=== PATIENT | male | born 1960 | race Caucasian/White ===

== ENCOUNTER 2020-12-25 13:48 | Observation (INO) | payer OTHER ==
[2020-12-25 14:46] LABS: Absolute Lymphocytes (CBC) 2.3 K/uL (0.7-4.9); Basophils % 0.7 % (0-1.3); Lymphocytes % 23.8 % (15.3-44.8); MPV 8.7 fL (7.6-11.3); RBC Red Blood Cell Count 5.18 M/uL (4.33-5.43)
--- NOTE | 2020-12-25 14:50 | RAD REPORT ---
EXAM DESCRIPTION: RAD - Chest Single View - 12/25/2020 2:44 pm CLINICAL HISTORY: CHEST PAIN Chest pain. COMPARISON: No comparisons FINDINGS: Portable technique limits examination quality. The lungs are grossly clear. The heart is normal in size. No displaced fractures. IMPRESSION: No acute intrathoracic process suspected.
[2020-12-25 14:51] LABS: Protime INR 1.08
[2020-12-25 15:08] LABS: ALT/SGPT 81 U/L (12-78); AST/SGOT 81 U/L (15-37); Albumin 4.7 g/dL (3.4-5.0); Alkaline Phosphatase 73 U/L (45-117); BUN Blood Urea Nitrogen 10 mg/dL (7-18); Bicarbonate 22 mmol/L (21-32); Bilirubin Direct 0.2 mg/dL (0-0.2); Bilirubin Total 0.7 mg/dL (0.2-1.0); Glucose Level 98 mg/dL (74-106); Magnesium 2.3 mg/dL (1.8-2.4); NT PRO-BNP 13 pg/mL (<125); Potassium 4.1 mmol/L (3.5-5.1); Protein, Total 8.4 g/dL (6.4-8.2); Sodium Level 136 mmol/L (136-145); Troponin (Emerg Dept Use Only) < 0.02 ng/mL (0.0-0.045)
[2020-12-25] MEDS ORDERED: ASPIRIN 81 MG CHEWABLE TABLET ONE (15:25)
[2020-12-25] MEDS ORDERED: NA CHLORIDE 0.9% 1,000 ML ONE (15:26)
--- NOTE | 2020-12-25 15:32 | EDPHYS ---
Physician Documentation [facility] Name: Raffi Doran Age: 60 yrs Sex: Male : 1960 Arrival Date: 12/25/2020 Time: 13:49 Bed 17 Private MD: ED Physician Mani Vaughn HPI: 12/25 14:21 This 60 yrs old Male presents to ER via Ambulatory with complaints of Chest cp Pain, Arm Pain. 14:21 The patient or guardian reports chest pain that is located primarily in the anterior cp chest wall, left. 14:21 Onset: today. cp 14:21 The pain radiates to left upper arm. Associated signs and symptoms: Pertinent cp negatives: abdominal pain, cough, diaphoresis, dizziness, headache, lower extremity pain, lower extremity swelling, shortness of breath. The chest pain is described as aching. Duration: The patient or guardian reports a single episode, chest pain resolved but continues to have pain left upper arm. Patient reports episode of left side chest pain last night. Historical: - Allergies: 13:59 No Known Allergies; ll1 - PMHx: 13:59 Hypertension; ll1 - PSHx: 13:59 None; ll1 - Immunization history:: Flu vaccine is not up to date. - Social history:: Smoking status: Patient reports the use of cigarette tobacco products, denies chronic smoking, but will smoke occasionally. ROS: 14:25 Constitutional: Negative for body aches, chills, fever, poor PO intake. cp 14:25 Eyes: Negative for injury, pain, redness, and discharge. cp 14:25 ENT: Negative for ear pain, sore throat, difficulty swallowing, difficulty handling secretions. 14:25 Neck: Negative for pain with movement, pain at rest, stiffness, tenderness. 14:25 Cardiovascular: Positive for chest pain, of the anterior aspect of left upper chest, Negative for edema, palpitations. 14:25 Respiratory: Negative for cough, shortness of breath, wheezing. 14:25 Abdomen/GI: Negative for abdominal pain, nausea, vomiting, and diarrhea. 14:25 Back: Negative for radiated pain. 14:25 Neuro: Negative for altered mental status, headache, numbness, syncope, weakness. 14:25 All other systems are negative. Exam: 14:30 Constitutional: The patient appears in no acute distress, alert, awake, comfortable, cp non-diaphoretic, non-toxic, well developed, well nourished. 14:30 Head/Face: Normocephalic, atraumatic. cp 14:30 Eyes: Periorbital structures: appear normal, Conjunctiva: normal, no exudate, no injection, Sclera: no appreciated abnormality, Lids and lashes: appear normal, bilaterally. 14:30 ENT: External ear(s): are unremarkable, Nose: is normal, Posterior pharynx: Airway: no evidence of obstruction, patent. 14:30 Neck: ROM/movement: is normal, is supple, without pain, no range of motions limitations, no nuchal rigidity. 14:30 Chest/axilla: Inspection: normal, Palpation: is normal, no crepitus, no tenderness. 14:30 Cardiovascular: Rate: tachycardic, Rhythm: regular, Heart sounds: murmur, not appreciated, Edema: is not appreciated, JVD: is not appreciated. 14:30 Respiratory: the patient does not display signs of respiratory distress, Respirations: normal, no use of accessory muscles, no retractions, labored breathing, is not present, Breath sounds: are clear throughout, no decreased breath sounds, no stridor, no wheezing. 14:30 Abdomen/GI: Inspection: abdomen appears normal, Palpation: abdomen is soft and non-tender, in all quadrants. 14:30 Back: pain, is absent, ROM is normal. 14:30 Skin: no rash present. 14:30 Neuro: Orientation: to person, place \\T\\ time. Mentation: is normal, Motor: moves all fours, strength is normal. 14:46 ECG was reviewed by the Attending Physician. cp Vital Signs: 13:59 BP 139 / 89; Pulse 107; Resp 17; Temp 97.1; Pulse Ox 100% ; Weight 99.79 kg; Height 5 ll1 ft. 11 in. (180.34 cm); Pain 5/10; 15:49 BP 116 / 92; Pulse 81; Resp 18; Pulse Ox 98% on R/A; ph 17:00 BP 123 / 86; Pulse 78; Resp 18; Pulse Ox 99% on R/A; ph 17:54 BP 118 / 90; Pulse 81; Resp 18; Temp 97.5; Pulse Ox 99% on R/A; Pain 0/10; ph 13:59 Body Mass Index 30.68 (99.79 kg, 180.34 cm) ll1 MDM: 14:19 Patient medically screened. cp 14:30 Differential diagnosis: abnormal EKG, acute myocardial infarction, pleurisy, pneumonia, cp pneumothorax, pulmonary embolus, stable angina, thoracic aortic disection, unstable angina. 15:30 Data reviewed: vital signs, nurses notes, lab test result(s), EKG, radiologic studies, cp plain films. 15:30 Test interpretation: by ED physician or midlevel provider: ECG, plain radiologic cp studies. Counseling: I had a detailed discussion with the patient and/or guardian regarding: the historical points, exam findings, and any diagnostic results supporting the discharge/admit diagnosis, lab results, radiology results, the need for further work-up and treatment in the hospital. Physician consultation: Valdo Jacobs was called at 15:30, was contacted at 15:30, regarding admission, to the telemetry unit. patient's condition. 18:30 Refusal of service: The patient/guardian displays adequate decision making capability cp and despite a detailed discussion of alternatives, benefits, risks, and consequences refuses: Admission to the hospital for further work-up and treatment. 12/25 14:20 Order name: Basic Metabolic Panel; Complete Time: 15:08 cp 12/25 15:09 Interpretation: Normal except: GFR 75. cp 12/25 14:20 Order name: CBC with Diff; Complete Time: 15:08 cp 12/25 14:20 Order name: LFT's; Complete Time: 15:08 cp 12/25 15:09 Interpretation: Normal except: AST 81; ALT 81; TP 8.4; GLOB 3.7. cp 12/25 14:20 Order name: Magnesium; Complete Time: 15:08 cp 12/25 14:20 Order name: NT PRO-BNP; Complete Time: 15:08 cp 12/25 14:20 Order name: PT-INR; Complete Time: 15:08 cp 12/25 14:20 Order name: Troponin (emerg Dept Use Only); Complete Time: 15:08 cp 12/25 14:30 Order name: COVID-19 : Document "Date of Symptom Onset" if Symptomatic. 12/25 16:19 Order name: Basic Metabolic Panel [facility] 12/25 16:19 Order name: Basic Metabolic Panel [facility] 12/25 16:19 Order name: CBC with Automated Diff [facility] 12/25 16:19 Order name: CBC with Automated Diff [facility] 12/25 16:19 Order name: Lipid Profile [facility] 12/25 14:20 Order name: XRAY Chest (1 view); Complete Time: 15:08 cp 12/25 15:18 Interpretation: Report reviewed. cp 02 14:20 Order name: EKG; Complete Time: 14:22 cp 12/25 14:20 Order name: Cardiac monitoring; Complete Time: 14:39 cp 12/25 14:20 Order name: EKG - Nurse/Tech; Complete Time: 14:39 cp 12/25 14:20 Order name: IV Saline Lock; Complete Time: 14:40 cp 12/25 14:20 Order name: Labs collected and sent; Complete Time: 14:40 cp 12/25 14:20 Order name: O2 Per Protocol; Complete Time: 14:40 cp 12/25 16:19 Order name: Heart Healthy [facility] 12/25 16:19 Order name: Lipid Profile [facility] 12/25 16:19 Order name: Troponin I [facility] 12/25 16:19 Order name: Troponin I [facility] 12/25 16:19 Order name: Troponin I [facility] 12/25 16:23 Order name: SARS-COV-2 RT PCR [facility] 12/25 14:20 Order name: O2 Sat Monitoring; Complete Time: 14:40 cp EC:46 Rate is 91 beats/min. Rhythm is regular. OK interval is normal. QRS interval is normal. cp QT interval is normal. T waves are Inverted in lead aVR. Interpreted by me. Reviewed by me. Administered Medications: 15:47 Drug: Aspirin Chewable Tablet 324 mg Route: PO; ph 16:30 Follow up: Response: No adverse reaction ph 15:47 Drug: NS 0.9% 500 ml Route: IV; Rate: bolus; Site: right forearm; ph 17:00 Follow up: Response: No adverse reaction; IV Status: Completed infusion; IV Intake: ph 500ml 15:47 Drug: NS 0.9% 500 ml Route: IV; Rate: 500 ml/hr; Site: right forearm; ph 17:30 Follow up: Response: No adverse reaction; IV Status: Completed infusion; IV Intake: ph 500ml Disposition: 02/12/21 15:32 Hospitalization ordered by Valdo Jacobs for Observation. Preliminary diagnosis is Chest pain, unspecified. - Bed requested for Telemetry/MedSurg (observation). - Status is Observation. vg1 - Condition is Stable. - Problem is new. - Symptoms have improved. Addendum: 12/27/2020 14:33 Co-signature as Attending Physician, Mani Vaughn MD I agree with the assessment and k dr plan of care. Signatures: Dispatcher [employer] [facility] Mani Vaughn MD MD [facility] Kelsi Mcknight, RN RN Christo Tay PA PA Toyin Vargas, RN RN vg1 Charissa Banuelos RN RN ll1 Corrections: (The following items were deleted from the chart) 12/25 15:36 14:31 CORONAVIRUS ordered. [facility] 18:35 15:32 Hospitalization Ordered by Valdo Jacobs for Observation. Preliminary diagnosis vg1 is Chest pain, unspecified. Bed requested for Telemetry/MedSurg (observation). Status is Observation. Condition is Stable. Problem is new. Symptoms have improved. cp
--- NOTE | 2020-12-25 15:32 | ER ---
Nurse's Notes [facility] Name: Raffi Doran Age: 60 yrs Sex: Male : 1960 Arrival Date: 12/25/2020 Time: 13:49 Bed 17 Private MD: Diagnosis: Chest pain, unspecified Presentation: 12/25 13:59 Chief complaint: Patient states: L CP, L Shoulder, L arm pain since last night. No ll1 cough or SOB. No fever,. Coronavirus screen: Client denies travel out of the [place] in the last 14 days. At this time, the client does not indicate any symptoms associated with coronavirus-19. Ebola Screen: Patient denies travel to an Ebola-affected area in the 21 days before illness onset. Initial Sepsis Screen: Does the patient meet any 2 criteria? HR > 90 bpm. No. Patient's initial sepsis screen is negative. Does the patient have a suspected source of infection? No. Patient's initial sepsis screen is negative. Risk Assessment: Do you want to hurt yourself or someone else? Patient reports no desire to harm self or others. Onset of symptoms was December 24, 2019. 13:59 Method Of Arrival: Ambulatory ll1 13:59 Acuity: RYAN 3 ll1 Historical: - Allergies: 13:59 No Known Allergies; ll1 - PMHx: 13:59 Hypertension; ll1 - PSHx: 13:59 None; ll1 - Immunization history:: Flu vaccine is not up to date. - Social history:: Smoking status: Patient reports the use of cigarette tobacco products, denies chronic smoking, but will smoke occasionally. Screenin:06 Abuse screen: Denies threats or abuse. Denies injuries from another. Nutritional ph screening: No deficits noted. Tuberculosis screening: No symptoms or risk factors identified. Fall Risk None identified. Assessment: 14:47 General: Appears in no apparent distress. well groomed, Behavior is calm, cooperative, ph appropriate for age, Denies fever, feeling ill. Pain: Complains of pain in anterior aspect of left upper chest Pain radiates to left arm Pain currently is 1 out of 10 on a pain scale. Pain began 1 day ago. Neuro: Level of Consciousness is awake, alert, obeys commands, Oriented to person, place, time, situation. Cardiovascular: Reports chest pain, Denies lightheadedness, nausea, palpitations, shortness of breath, vomiting. Respiratory: Airway is patent Respiratory effort is labored, Respiratory pattern is tachypnea. 15:49 Reassessment: Patient appears in no apparent distress at this time. Patient and/or ph family updated on plan of care and expected duration. Pain level reassessed. Patient is alert, oriented x 3, equal unlabored respirations, skin warm/dry/pink. 17:35 Reassessment: Patient appears in no apparent distress at this time. Patient and/or ph family updated on plan of care and expected duration. Pain level reassessed. Patient is alert, oriented x 3, equal unlabored respirations, skin warm/dry/pink. Pt states that he does not wish to be admitted to the hospital, states, " I just wanted to make sure that I wasn't having a heart attack and I'm not. I have an appointment w/ my Dr next so I will follow up w/ him." ERP notified and at bedside to speak w/ pt, pt still states that he does not want to be admitted, will sign out AMA Patient denies pain at this time. 17:53 Reassessment: AMA form signed by pt, pt instructed to return to ED if symptoms return ph or worsen. Vital Signs: 13:59 BP 139 / 89; Pulse 107; Resp 17; Temp 97.1; Pulse Ox 100% ; Weight 99.79 kg; Height 5 ll1 ft. 11 in. (180.34 cm); Pain 5/10; 15:49 BP 116 / 92; Pulse 81; Resp 18; Pulse Ox 98% on R/A; ph 17:00 BP 123 / 86; Pulse 78; Resp 18; Pulse Ox 99% on R/A; ph 17:54 BP 118 / 90; Pulse 81; Resp 18; Temp 97.5; Pulse Ox 99% on R/A; Pain 0/10; ph 13:59 Body Mass Index 30.68 (99.79 kg, 180.34 cm) ll1 Vitals: 15:49 Cardiac Rhythm Assessment Regular. ED Course: 13:49 Patient arrived in ED. ds1 13:58 Arm band placed on. ll1 14:00 Triage completed. ll1 14:06 Kelsi Mcknight, DANAY is Primary Nurse. ph 14:11 Christo Tay PA is PHCP. cp 14:11 Mani Vaughn MD is Attending Physician. cp 14:20 Inserted saline lock: 22 gauge in right forearm, using aseptic technique. Blood ph collected. 14:44 XRAY Chest (1 view) In Process Unspecified. EDMA 15:31 Reynaldo Valdo is Hospitalizing Provider. cp 15:50 Patient has correct armband on for positive identification. Placed in gown. Bed in low ph position. Call light in reach. Side rails up X 1. engine monitor on. Pulse ox on. NIBP on. Door closed. Noise minimized. 15:50 Patient maintains SpO2 saturation greater than 95% on room air. ph 17:54 No provider procedures requiring assistance completed. IV discontinued, intact, ph bleeding controlled, No redness/swelling at site. Pressure dressing applied. Administered Medications: 15:47 Drug: Aspirin Chewable Tablet 324 mg Route: PO; ph 16:30 Follow up: Response: No adverse reaction ph 15:47 Drug: NS 0.9% 500 ml Route: IV; Rate: bolus; Site: right forearm; ph 17:00 Follow up: Response: No adverse reaction; IV Status: Completed infusion; IV Intake: ph 500ml 15:47 Drug: NS 0.9% 500 ml Route: IV; Rate: 500 ml/hr; Site: right forearm; ph 17:30 Follow up: Response: No adverse reaction; IV Status: Completed infusion; IV Intake: ph 500ml Outcome: 15:32 Decision to Hospitalize by Provider. cp 17:54 AMA AMA form signed ph 17:54 Condition: stable 18:35 Patient left the ED. vg1 Signatures: Dispatcher [employer] [facility] Patterson Kyleigh ds1 Kelsi Mcknight, RN RN ph Christo Tay PA PA Toyin Vargas, RN RN vg1 Charissa Banuelos RN RN ll1
[2020-12-25] MEDS ORDERED: ACETAMINOPHEN 500 MG TAB PO PRN (16:16)
[2020-12-25] MEDS ORDERED: NITROGLYCERIN 0.4 MG/TAB SL PRN (16:16)
[2020-12-25] MEDS ORDERED: MORPHINE 2 MG/ML SYR IV PRN (16:32)
[2020-12-25] MEDS ORDERED: ENOXAPARIN 40 MG/0.4 ML SQ SCH (17:00)
[2020-12-25 18:42] VITALS: O2SAT 99
[2020-12-25 18:44] VITALS: BP 118/90; TEMP 97.5
--- NOTE | 2020-12-25 18:54 | P.HP ---
Patient History Date of Service: 12/25/20 Reason for admission: Chest pain History of Present Illness: Was called by the ED provider Christo Tay to evaluate Mr. Doran for hospitalization to rule out ACS. I went to find an empty room. I am told by the ED provider patient signed out against medical advice. Physical Examination - Vital Signs Temperature: 97.5 F Blood Pressure: 118/90 Pulse: 81 Respirations: 18 - Studies Laboratory Data (last 24 hrs) 12/25/20 14:35: PT 12.4, INR 1.08 12/25/20 14:35: WBC 9.60, Hgb 14.3, Hct 43.0, Plt Count 339 12/25/20 14:35: Sodium 136, Potassium 4.1, BUN 10, Creatinine 1.02, Glucose 98, Magnesium 2.3, Total Bilirubin 0.7, AST 81 H, ALT 81 H, Alkaline Phosphatase 73 Assessment and Plan - Advance Directives Does patient have a Living Will: No Does patient have a Durable POA for Healthcare: No
[2020-12-26] MEDS ORDERED: ASPIRIN EC 81 MG TAB PO SCH (09:00)
--- NOTE | 2020-12-27 07:55 | EKG ---
Test Date: 2020-12-25 Test Time: 14:27:39 Order Entry: PH MEASUREMENT RESULTS: Intervals: Rate: 91 WI: 164 QRSD: 86 QT: 356 QTc: 437 [place]: P: 41 WI: 164 QRS: 43 T: 25 INTERPRETIVE STATEMENTS: Normal sinus rhythm Cannot rule out Anterior infarct, age undetermined Abnormal ECG No previous ECG available for comparison Electronically Signed On 12-27-20 07:53:18 MANAGEMENT SME by Agustin Fontana
== END 2020-12-25 18:35 | disposition left against medical advice (07) ==
LOC: ER 13:48 → ERHOLD 16:25
PROVIDERS: ADMIT Internal Medicine; ATTEND Internal Medicine
DX: R07.9 Chest pain, unspecified (principal); Z53.21 Procedure and treatment not carried out due to patient leaving prior to being seen by health care provider; I10 Essential (primary) hypertension; F17.210 Nicotine dependence, cigarettes, uncomplicated; Z20.822 Contact with and (suspected) exposure to COVID-19
CPT/HCPCS: 96361; 93005; 85025; 80048; 36415; 83735; 85610; 80076; 84484; 83880; 71045; 96360; 99285; U0003; J7030